=== PATIENT | male | born 2000 | race Caucasian/White ===

== ENCOUNTER → 2020-12-31 13:08 | Outpatient (BNVA) | payer BC, SELFPAY | PROVIDERS: Family Provider Family Medicine; PCP Family Medicine | DX: Z20.822 Contact with and (suspected) exposure to COVID-19 (principal) | CPT/HCPCS: 87635 ==

== ENCOUNTER 2022-04-09 10:12 | Emergency (ER) | payer BC, SELFPAY ==
[2022-04-09 10:44] VITALS: BP 134/82; PULSE 90; RESP 14; TEMP 36.8; O2SAT 99; BMI 27.4
--- NOTE | 2022-04-09 10:54 | ED_ITS ---
HPI - Abdominal Pain General: Chief Complaint: Abdominal Pain Stated Complaint: Abd pain Time Seen by Provider: 04/09/22 10:21 PFSH ED PFSH: Social History Smoking and tobacco status: never smoked Alcohol intake: never Course Vital Signs: Vital signs: Vital Signs Temperature 98.2 F 04/09/22 10:44 Pulse Rate 90 04/09/22 10:44 Respiratory Rate 14 04/09/22 10:44 Blood Pressure 134/82 04/09/22 10:44 Pulse Oximetry 99 04/09/22 10:44 Discharge Plan Discharge Condition: Stable Prescriptions: No Action doxycycline hyclate 100 mg capsule 100 mg PO DAILY 10 Days Qty: 20 0RF Referrals: Kristofer Martinez MD [Primary Care Provider] - Coding Level of Care Code ED Precision Devices Inspector/Tester for Samanta Hanley
--- NOTE | 2022-04-09 11:00 | US_ITS ---
WS: [id number] TESTICULAR ULTRASOUND HISTORY: R testicular/scrotal pain COMPARISON: None available. TECHNIQUE: Real-time and color Doppler imaging or utilized to perform a testicular ultrasound. Right testicle: 3.7 cm x 2.4 cm x 2.1 cm. Normal size and echogenicity. No mass or torsion. Color Doppler is diffusely present throughout the testicle. There is slightly more color Doppler demo nstrated throughout the RIGHT testicle as compared to the LEFT. No significant hydrocele. Right epididymis: Normal epididymis with no increased vascularity. Left testicle: 3.9 cm x 2.2 cm x 2.3 cm. Normal size and echogenicity. No mass or torsion. Normal color Doppler is present throughout. Systolic and diastolic velocities are both present. No significant hydrocele. Left epididymis: Normal epididymis with no increased vascularity. US/US scrotum [id number] IMPRESSION: 1. No testicular mass or torsion. 2. Very minimal increased vascularity throughout the RIGHT testicle as compare d to the LEFT. May represent very mild early changes of orchitis.
--- NOTE | 2022-04-09 11:01 | W.ED.MALEGU ---
Documented by User: JEFF Liz 04/09/22 14:54 HPI - Male Genitourinary General: Chief complaint: Abdominal Pain Stated complaint: Abd pain Time Seen by Provider: 04/09/22 10:21 Source: patient Mode of arrival: ambulatory Limitations: no limitations History of Present Illness: Patient is a 21-year-old male who presents to ED today with a complaint of right sided testicular pain over the past 2 to 3 days. Patient states he was seen at the walk-in clinic 2 days ago and diagnosed with right epididymitis. Provider note states he was prescribed doxycycline however patient was unaware of this and has not filled it at the pharmacy. Patient denies any new sexual partners or concern for STDs. He is not having any penile discharge or dysuria. He denies any swelling, redness, warmth to the scrotum/testicles. He has not noticed any masses or bulges. He was triaged as abdominal pain however patient states he is not really having any abdominal discomfort and most of his pain is localized to his right testicle/scrotum. He has no urinary complaints. No vomiting or changes in bowel habits. No fevers. MD Complaint: testicle pain Onset (ago): day(s) Duration: constant Location: right testicle Severity: moderate Relieving factors: none Exacerbating factors: none Associated symptoms: Reports no associated symptoms; Deny dysuria, hematuria, nausea or vomiting Review of Systems Const: Denies: fever(s), chills, body aches, fatigue or malaise Card: Denies: chest pain Resp: Denies: dyspnea GI: Denies: abdominal pain, nausea, vomiting, diarrhea or change in bowel habits : Reports: testicular pain; Denies: flank pain, difficulty urinating, dysuria, urinary frequency, urinary urgency, urinary hesitancy, hematuria, genital lesions, penile discharge, testicular mass or scrotal swelling Musc: Denies: back pain Skin/Breast: Denies: rash PFSH ED PFSH: Social History Smoking and tobacco status: never smoked Alcohol intake: never Physical Exam Const: COMMON NORMALS: no acute distress, average body habitus, patient oriented x3, no limitations, healthy appearing, alert and well nourished Resp: COMMON NORMALS: normal respiratory effort and clear to auscultation bilaterally AUSCULTATION: clear to auscultation bilaterally Cardio: COMMON NORMALS: regular rate and regular rhythm RATE: regular rate RHYTHM: regular rhythm GI: COMMON NORMALS: Normal to inspection, nondistended, normoactive bowel sounds present, Soft to palpation, non-tender, No hepatosplenomegaly present and no masses PALPATION: Yes Soft to palpation and Yes No hepatosplenomegaly present : COMMON NORMALS: Yes no CVA tenderness BLADDER/KIDNEY EXAM: Yes no CVA tenderness PENIS: normal penis MEATUS: meatus normal SCROTUM: Yes testes descended bilaterally and Yes Scrotal tenderness present (R) TESTES: Yes testicular tenderness (R) and Yes epididymal tenderness (R) OTHER: no swelling, redness, warmth noted; no masses/bulges Back/Pelvis: COMMON NORMALS: no CVA tenderness Neuro: COMMON NORMALS: patient oriented x3 SENSORIUM/ORIENTATION: Yes alert Skin: COMMON NORMALS: no rashes or lesions noted GENERAL SKIN EXAM: no rashes or lesions noted Course Vital Signs: Vital signs: Vital Signs Temperature 98.2 F 04/09/22 10:44 Pulse Rate 82 04/09/22 13:17 Respiratory Rate 14 04/09/22 13:17 Blood Pressure 123/81 04/09/22 13:17 Pulse Oximetry 100 04/09/22 13:17 MDM - Male Medical Decision Making Patient possibly has a very mild early changes of orchitis on his ultrasound. UA is negative. We will run gonorrhea/chlamydia off of his urine. I think it is reasonable at this time to treat him with IM Rocephin and recommend he fill the doxycycline and begin taking this. We will place referral to case management to get him set up with urology for further evaluation. Lab Data Radiology Impressions Scrotum Ultrasound 04/09/22 11:00 IMPRESSION: 1. No testicular mass or torsion. 2. Very minimal increased vascularity throughout the RIGHT testicle as compared to the LEFT. May represent very mild early changes of orchitis. Laboratory Results Urine Color Yellow (Yellow) 04/09/22 11:10 Urine Appearance Clear (CLEAR) 04/09/22 11:10 Urine pH 7 (5-7) 04/09/22 11:10 Ur Specific [place] 1.010 (1.005-1.030) 04/09/22 11:10 Urine Protein Neg (Negative) 04/09/22 11:10 Urine Glucose (UA) Norm (Normal) 04/09/22 11:10 Urine Ketones Negative (Negative) 04/09/22 11:10 Urine Blood Neg (Negative) 04/09/22 11:10 Urine Nitrate Negative (Negative) 04/09/22 11:10 Urine Bilirubin Neg (Negative) 04/09/22 11:10 Urine Urobilinogen Norm mg/dL (Negative) 04/09/22 11:10 Ur Leukocyte Esterase Negative (Negative) 04/09/22 11:10 Discharge Plan Discharge Patient Disposition: Home Clinical Impression: Orchitis, right Condition: Stable Prescriptions: Continued doxycycline hyclate 100 mg capsule 100 mg PO DAILY 10 Days Qty: 20 0RF Rx Instructions: pt not picked up rx yet No Action ibuprofen 200 mg Tablet 800 mg PO Q6H PRN (Reason: Pain) 0RF Discharge Orders: Discharge ED (Routine); Ordered 04/09/22 Ordered By: Estefani Dean Referrals: Sharath Ng MD [Physician] - Kristofer Martinez MD [Primary Care Provider] - Patient Instructions: Testicle Pain (ED), Orchitis (ED) Activity Restrictions/Additional Instructions: As we discussed please fill your antibiotics and start them immediately. Case management should contact you shortly to set you up with your follow-up urology appointment. You need to return to the emergency department for worsening or severe testicle/scrotal pain, swelling, redness, warmth, fevers, or any other concerns you may have. Stand Alone Forms: Work/School Release Coding Level of Care Code ED Customer Complaint Clerk for Chg Fwd Exam Detailed Documented by User: Elias Gabriel MD 04/20/22 22:50 HPI - Male Genitourinary General: Chief complaint: Abdominal Pain Stated complaint: Abd pain Time Seen by Provider: 04/09/22 10:21 PFSH ED PFSH: Social History Smoking and tobacco status: never smoked Alcohol intake: never Course Vital Signs: Vital signs: Vital Signs Temperature 98.2 F 04/09/22 10:44 Pulse Rate 82 04/09/22 13:17 Respiratory Rate 14 04/09/22 13:17 Blood Pressure 123/81 04/09/22 13:17 Pulse Oximetry 100 04/09/22 13:17 MDM - Male Medical Decision Making Patient possibly has a very mild early changes of orchitis on his ultrasound. UA is negative. We will run gonorrhea/chlamydia off of his urine. I think it is reasonable at this time to treat him with IM Rocephin and recommend he fill the doxycycline and begin taking this. We will place referral to case management to get him set up with urology for further evaluation. I have reviewed this documentation by JEFF Liz. Elias Gabriel MD Emergency Medicine Lab Data Radiology Impressions Scrotum Ultrasound 04/09/22 11:00
[2022-04-09 11:13] LABS: Add Urine Microscopic? NO; Charge for UA Resulting for Rev
[2022-04-09 11:20] LABS: Urine Appearance Clear (CLEAR); Urine Color Yellow (Yellow); pH Urine 7 (5-7)
[2022-04-09 11:21] LABS: Bilirubin Urine Neg (Negative); Blood Urine Neg (Negative); Glucose Urine UA Norm (Normal); Ketones Urine Negative (Negative); Leukocyte Esterase Urine Negative (Negative); Nitrate Urine Negative (Negative); Protein Urine Neg (Negative); Urobilinogen Urine Norm (Negative)
[2022-04-09 13:17] VITALS: BP 123/81; PULSE 82; RESP 14; O2SAT 100
--- NOTE | 2022-04-11 08:14 | DCPLANNER ---
Addendum entered by Taylor Lemon 04/22/22 12:21: publications manager was sent the following message from urology regarding follow up appointment. Unable to reach patient with appt date and time. Patient has been called 4 days in a row to confirm this appt, We have cancelled his appt for URO. On Thu 4:07p Apr 11, 2022 Shital Segovia (Covering For: Urology Front Office) Wrote To: Taylor Lemon Appt. is 04/24/22 Original Note: publications manager had message to schedule a follow up appointment for patient with urology. publications manager sent patients information to the front office staff at urology. Patients information will be printed and reviewed. Clinic will call patient with appointment information.
== END 2022-04-09 13:17 | disposition home or self-care (01) ==
PROVIDERS: Emergency Provider Physician Assistant; PCP Family Medicine
DX: N45.2 Orchitis (principal)
CPT/HCPCS: 76870; 81003; 87491; 87591; 96372; 99284; J0696

== ENCOUNTER → 2023-03-24 16:06 | Outpatient (BNVA) | payer BC, SELFPAY | PROVIDERS: PCP Family Medicine; Visit Provider Registered Nurse Neonatal Intensive Care | DX: J02.9 Acute pharyngitis, unspecified (principal) | CPT/HCPCS: 87880 ==